=== PATIENT | female | born 1970 | race Caucasian/White ===

== ENCOUNTER 2016-08-15 07:56 | Day surgery (SDC) | payer BC, OTHER ==
[~2016-08-15] VITALS: Ht 157.5 cm; Wt 88.9 kg
[~2016-08-15 07:56] MED LIST: CAMILA PO; IBUPROFEN200 M1 PO
[2016-08-15 08:23] VITALS: BP 129/80
[2016-08-15 12:10] VITALS: BP 135/58
[2016-08-15 13:10] VITALS: BP 127/77
== END 2016-08-15 13:27 | disposition home or self-care (01) ==
LOC: SDC 07:56
DX: N92.1 Excessive and frequent menstruation with irregular cycle (principal); N94.6 Dysmenorrhea, unspecified; N84.0 Polyp of corpus uteri; D25.9 Leiomyoma of uterus, unspecified; N92.4 Excessive bleeding in the premenopausal period; E66.09 Other obesity due to excess calories; Z68.33 Body mass index [BMI] 33.0-33.9, adult; Z83.3 Family history of diabetes mellitus; Z82.49 Family history of ischemic heart disease and other diseases of the circulatory system; Z80.49 Family history of malignant neoplasm of other genital organs
CPT/HCPCS: 88305; J0690; J1100; J1170; J2405; J3010